=== PATIENT | female | born 1980 | race Caucasian/White ===

== ENCOUNTER 2017-06-30 09:15 | Emergency (ER) | payer SELFPAY ==
[~2017-06-30] VITALS: Ht 162.6 cm; Wt 85.0 kg
[~2017-06-30 09:15] MED LIST: CIPR500T2 PO; Z.0.NO CURRENT MEDS
[2017-06-30 09:27] VITALS: BP 138/66; PULSE 74; RESP 16; TEMP 98.1; O2SAT 99
[2017-06-30] MEDS ORDERED: KETOROLAC TROMETHAMINE 60 MG/2 ML (IM) VIAL IM ONE (09:45)
--- NOTE | 2017-06-30 09:51 | PD ---
HPI Chief Complaint: Complaint Time Seen by Provider: 09:30 Travel History International Travel<30 days: No Contact w/Intl Traveler<30days: No Traveled to known affect area: No History of Present Illness HPI 36-year-old female presents to the emergency department with complaint of burning on urination, difficulty urinating, urinary frequency, bilateral low back pain 1 week. Reports nausea without vomiting. Denies abdominal pain. Denies fever. Denies hematuria. Last menstrual period 2 weeks ago. No contraception use. Denies risk . Does report an abnormal vaginal discharge with fishy odor. Does not want a pelvic exam done. Denies risk of STD/STI. Rates pain 5/10. Describes it as a pressure. Has tried drinking cranberry juice for symptom management. Has not taken any other medications or tried any other treatments to alleviate her symptoms. No known allergies. No primary care provider. Denies significant past medical history. Has no other medical complaints. No other modifying factors or associated signs and symptoms. PFSH Past Medical History : 4 Para: 1 Miscarriage: 1 : 2 Dilation and Curettage (D&C): Yes Past Surgical History Section: Yes Gynecologic Surgery: Yes (d and c ) Social History Alcohol Use: Yes (occasional) Tobacco Use: Yes (one half pack per day) Substance Use: No Allergies-Medications (Allergen,Severity, Reaction): Coded Allergies: No Known Allergies (Verified Adverse Reaction, Unknown, 06/30/17) Reported Meds & Prescriptions Reported Meds & Active Scripts Active Flagyl (Metronidazole) 500 Mg Tab 500 Mg PO BID 7 Days Ciprofloxacin Hcl 500 Mg Tab 500 Mg PO BID Reported No [facility]s [facility] Med[facility] Review of Systems Except as stated in HPI: all other systems reviewed are Neg Physical Exam Narrative GENERAL: Well-nourished, well-developed female patient, in no acute distress SKIN: Warm and dry. No rash. HEAD: Atraumatic. Normocephalic. EYES: Pupils equal and round. No scleral icterus. No injection or drainage. ENT: Mucosa pink and moist. NECK: Trachea midline. CARDIOVASCULAR: Regular rate and rhythm. No murmur appreciated. RESPIRATORY: No accessory muscle use. Clear to auscultation. Breath sounds equal bilaterally. GASTROINTESTINAL: Abdomen soft, non-tender, nondistended. Hepatic and splenic margins not palpable. Bowel sounds are active 4 quadrants. Bladder nontender and nondistended. MUSCULOSKELETAL: No obvious deformities. No clubbing. No cyanosis. No edema. BACK: No CVA tenderness. No reproducible tenderness on palpation to the lower back or bilateral flank areas. NEUROLOGICAL: Awake and alert. Oriented 3. No obvious cranial nerve deficits. Motor grossly within normal limits. Normal speech. Moves all extremities. 5/5 strength to all extremities. PSYCHIATRIC: Appropriate mood and affect; insight and judgment normal. Data Data Last Documented VS Vital Signs Date Time Temp Pulse Resp B/P (MAP) Pulse Ox O2 Delivery O2 Flow Rate FiO2 06/30/17 09:27 98.1 74 16 138/66 (90) 99 Orders Orders Urinalysis - C+S If Indicated (06/30/17 09:31) Ed Urine Pregnancytest Poc (06/30/17 09:31) Ketorolac Inj (Toradol Inj) (06/30/17 09:45) Gc And Chlamydia Pcr (06/30/17 09:38) Wet Prep Profile (06/30/17 09:43) Ed Discharge Order (06/30/17 11:16) Labs Laboratory Tests Test 06/30/17 09:45 Urine Color YELLOW Urine Turbidity CLEAR Urine pH 5.5 Urine Specific [place] 1.021 Urine Protein NEG mg/dL Urine Glucose (UA) NEG mg/dL Urine Ketones NEG mg/dL Urine Occult Blood TRACE Urine Nitrite NEG Urine Bilirubin NEG Urine Urobilinogen LESS THAN 2.0 MG/DL Urine Leukocyte Esterase NEG Urine RBC LESS THAN 1 /hpf Urine WBC 1 /hpf Urine Squamous Epithelial Cells 1 /hpf Microscopic Urinalysis Comment CULT NOT INDICATED Clue Cells (Wet Prep) PRESENT Vaginal Trichomonas (Wet Prep) NONE SEEN Vaginal Yeast (Wet Prep) NONE SEEN MDM Medical Decision Making Medical Screen Exam Complete: Yes Emergency Medical Condition: Yes Medical Record Reviewed: Yes Differential Diagnosis Pyelonephritis, cystitis, urinary tract infection, bacterial vaginosis, chlamydia, gonorrhea Narrative Course 36-year-old female with urinary symptoms and abnormal vaginal discharge and odor. Patient does not want to have a pelvic exam performed. Urinalysis, UPT, voided chlamydia and gonorrhea ordered. 0946: Dr. Montiel evaluated the patient and the patient agrees to self swab. Wet prep ordered. 1114: Urinalysis without signs of infection. Wet prep positive for bacterial vaginosis. Negative for trichomonas or vaginal yeast. Coumadin gonorrhea pending. Flagyl prescribed for home. Instructed patient to follow-up with meteorological observer. Instructed patient to follow up with primary care provider. Patient verbalizes understanding and agreement with treatment plan. Patient is medically cleared and stable for discharge. Discussed reasons to return to the emergency department. Patient agrees with treatment plan. The patients vital signs are stable and the patient is stable for outpatient follow-up and treatment. Patient discharged home, stable and in no acute distress. Diagnosis Primary Impression: BV (bacterial vaginosis) [facility] Patient Instructions: Bacterial Vaginosis (ED), General Instructions Additional Instructions: Take antibiotics as prescribed and complete full course; do not drink alcohol while taking Flagyl Drink plenty of fluids Maintain good personal hygiene Follow-up with primary care provider Return to the emergency department immediately with worsening of symptoms Med/Other Pt SpecificInfo: Prescription(s) given Scripts Metronidazole (Flagyl) 500 Mg Tab 500 MG PO BID for Infection for 7 Days, #14 TAB 0 Refills Prov: Jaja Chin 06/30/17 Disposition: DISCHARGE HOME Condition: Stable Jaja Chin Jun 30, 2017 09:51
[2017-06-30 10:32] LABS: BILIRUBIN, URINE NEG (NEG); BLOOD, URINE TRACE (NEG); GLUCOSE,URINE NEG (NEG); KETONE, URINE NEG (NEG); NITRITE,URINE NEG (NEG); PH, URINE 5.5 (5.0-8.5); SQUAMOUS EPITHELIAL CELL URINE 1 /hpf (0-5); URINE COLOR YELLOW (YELLW/STRAW); URINE LEUKOCYTE ESTERASE NEG (NEG)
[2017-06-30] MEDS ORDERED: METR-1 PO (11:14)
== END 2017-06-30 11:33 | disposition home or self-care (01) ==
LOC: NEPD 09:15
DX: N76.0 Acute vaginitis (principal); F17.210 Nicotine dependence, cigarettes, uncomplicated
CPT/HCPCS: 81001; 84703; 87210; 87491; 87591; 96372; 99284; J1885

== ENCOUNTER 2017-08-25 12:38 | Emergency (ER) | payer SELFPAY ==
[~2017-08-25] VITALS: Ht 162.6 cm; Wt 92.3 kg
[~2017-08-25 12:38] MED LIST changes: +METR-1 PO
[2017-08-25 13:05] VITALS: BP 114/73; PULSE 76; RESP 18; TEMP 97.6; O2SAT 98
[2017-08-25] MEDS ORDERED: KETOROLAC TROMETHAMINE 60 MG/2 ML (IM) VIAL IM ONE (16:00)
--- NOTE | 2017-08-25 16:09 | PD ---
HPI Chief Complaint: Flank/Kidney Pain Time Seen by Provider: 15:43 Travel History International Travel<30 days: No Contact w/Intl Traveler<30days: No Traveled to known affect area: No History of Present Illness HPI 37-year-old female presents to emergency department with complaint of bilateral flank pain, hip pain, dysuria, abnormal vaginal discharge, and subjective fevers on and off since Friday. Says she had similar symptoms about 2 months ago and was treated for "vaginitis." Reports urinary hesitancy. Reports lower abdominal pelvic pressure. Denies abdominal pain. Last menstrual period was a few weeks ago. Denies contraception use. Unknown risk of STI/STD. Rates pain 01/05. Describes it as pressure type feeling. Has tried taking Azo with some relief of symptoms. Symptoms are worse with urinating. No primary care provider. No known allergies. Denies significant past medical history. Has no other medical complaints. No other modifying factors or associated signs and symptoms. PFSH Past Medical History ?: Not LMP: a couple of weeks ago : 4 Para: 1 Miscarriage: 1 : 2 Dilation and Curettage (D&C): Yes Past Surgical History Section: Yes Gynecologic Surgery: Yes (d and c ) Social History Alcohol Use: Yes (occasional) Tobacco Use: Yes (one half pack per day) Substance Use: No Allergies-Medications (Allergen,Severity, Reaction): Coded Allergies: No Known Allergies (Verified Adverse Reaction, Unknown, 06/30/17) Reported Meds & Prescriptions Reported Meds & Active Scripts Active Pyridium (Phenazopyridine HCl) 100 Mg Tab 100 Mg PO Q8H PRN 3 Days Keflex (Cephalexin) 500 Mg Cap 500 Mg PO Q12H 7 Days Flagyl (Metronidazole) 500 Mg Tab 500 Mg PO BID 7 Days Ciprofloxacin Hcl 500 Mg Tab 500 Mg PO BID Reported No Current Meds (Miscellaneous Medication) Misc Review of Systems Except as stated in HPI: all other systems reviewed are Neg Physical Exam Narrative GENERAL: Well-nourished, well-developed female patient, in no acute distress; afebrile, nontoxic-appearing SKIN: Warm and dry. HEAD: Atraumatic. Normocephalic. EYES: Pupils equal and round. No scleral icterus. No injection or drainage. ENT: Mucous membranes pink and moist. NECK: Trachea midline. No lymphadenopathy. CARDIOVASCULAR: Regular rate and rhythm. No murmur appreciated. RESPIRATORY: No accessory muscle use. Clear to auscultation. Breath sounds equal bilaterally. GASTROINTESTINAL: Abdomen soft, non-tender, nondistended. Bilateral pelvic region nontender to palpation. Hepatic and splenic margins not palpable. Bladder tenderness on palpation; nondistended. No guarding, rigidity, rebound tenderness. PELVIC: Exam done in the presence of a nurse. Mucopurulent, foul-smelling discharge noted. Bimanual exam reveals no palpable masses or adnexa tenderness , no uterine tenderness. No cervical motion tenderness. BACK: No CVA tenderness. MUSCULOSKELETAL: No obvious deformities. No clubbing. No cyanosis. No edema. NEUROLOGICAL: Awake and alert. No obvious cranial nerve deficits. Motor grossly within normal limits. Normal speech. PSYCHIATRIC: Appropriate mood and affect; insight and judgment normal. Data Data Last Documented VS Vital Signs Date Time Temp Pulse Resp B/P (MAP) Pulse Ox O2 Delivery O2 Flow Rate FiO2 08/25/17 13:05 97.6 76 18 114/73 (87) 98 Orders Orders Comprehensive Metabolic Panel (08/25/17 13:07) Complete Blood Count With Diff (08/25/17 13:07) Lipase (08/25/17 13:07) Urinalysis - C+S If Indicated (08/25/17 13:07) Ed Urine Pregnancytest Poc (08/25/17 13:07) Gc And Chlamydia Pcr (08/25/17 15:57) Wet Prep Profile (08/25/17 15:57) Ketorolac Inj (Toradol Inj) (08/25/17 16:00) Vascular Access Team Consult/P PRN (08/25/17 16:12) Vascular Poc Ultrasound (08/25/17 ) Urine Culture (08/25/17 15:13) Ceftriaxone Inj (Rocephin Inj) (08/25/17 17:45) Ed Discharge Order (08/25/17 18:56) Labs Laboratory Tests Test 08/25/17 15:13 08/25/17 17:00 08/25/17 17:45 Urine Color YELLOW Urine Turbidity HAZY Urine pH 6.0 Urine Specific [place] 1.017 Urine Protein NEG mg/dL Urine Glucose (UA) NEG mg/dL Urine Ketones NEG mg/dL Urine Occult Blood SMALL Urine Nitrite POS Urine Bilirubin NEG Urine Urobilinogen LESS THAN 2.0 MG/DL Urine Leukocyte Esterase LARGE Urine RBC 9 /hpf Urine WBC 91 /hpf Urine Squamous Epithelial Cells 3 /hpf Urine Amorphous Sediment RARE Urine Bacteria FEW /hpf Urine Mucus FEW /lpf Microscopic Urinalysis Comment CULTURE INDICATED White Blood Count 7.5 TH/MM3 Red Blood Count 4.15 MIL/MM3 Hemoglobin 13.0 GM/DL Hematocrit 37.0 % Mean Corpuscular Volume 89.0 FL Mean Corpuscular Hemoglobin 31.3 PG Mean Corpuscular Hemoglobin Concent 35.2 % Red Cell Distribution Width 12.5 % Platelet Count 203 TH/MM3 Mean Platelet Volume 8.9 FL Neutrophils (%) (Auto) 66.9 % Lymphocytes (%) (Auto) 23.4 % Monocytes (%) (Auto) 8.4 % Eosinophils (%) (Auto) 0.9 % Basophils (%) (Auto) 0.4 % Neutrophils # (Auto) 5.0 TH/MM3 Lymphocytes # (Auto) 1.8 TH/MM3 Monocytes # (Auto) 0.6 TH/MM3 Eosinophils # (Auto) 0.1 TH/MM3 Basophils # (Auto) 0.0 TH/MM3 CBC Comment DIFF FINAL Differential Comment Blood Urea Nitrogen 10 MG/DL Creatinine 0.76 MG/DL Random Glucose 68 MG/DL Total Protein 7.2 GM/DL Albumin 3.1 GM/DL Calcium Level 8.3 MG/DL Alkaline Phosphatase 76 U/L Aspartate Amino Transf (AST/SGOT) 9 U/L Alanine Aminotransferase (ALT/SGPT) 18 U/L Total Bilirubin 0.2 MG/DL Sodium Level 140 MEQ/L Potassium Level 4.0 MEQ/L Chloride Level 105 MEQ/L Carbon Dioxide Level 30.5 MEQ/L Anion Gap 5 MEQ/L Estimat Glomerular Filtration Rate 86 ML/MIN Lipase 109 U/L Clue Cells (Wet Prep) NONE SEEN Vaginal Trichomonas (Wet Prep) NONE SEEN Vaginal Yeast (Wet Prep) NONE SEEN MDM Medical Decision Making Medical Screen Exam Complete: Yes Emergency Medical Condition: Yes Medical Record Reviewed: Yes Differential Diagnosis Bacterial vaginosis, chlamydia, gonorrhea, urinary tract infection, PID Narrative Course 37-year-old female with urinary and vaginal symptoms. Patient was seen here June 30 for similar symptoms and diagnosed and treated for bacterial vaginosis. She says her current symptoms are similar to her past visit. 1744: Urinalysis with signs of infection. Rocephin 1 g IV ordered. 1855: Bacterial vaginosis, trichomonas, vaginal yeast negative. chlamydia and gonorrhea pending. Pyridium, Keflex prescribed for home. Instructed patient to follow up with primary care provider. Patient verbalizes understanding and agreement with treatment plan. Patient is medically cleared and stable for discharge. Discussed reasons to return to the emergency department. Patient agrees with treatment plan. The patients vital signs are stable and the patient is stable for outpatient follow-up and treatment. Patient discharged home, stable and in no acute distress. Diagnosis Primary Impression: UTI (urinary tract infection) Qualified Codes: N39.0 - Urinary tract infection, site not specified; R31.9 - Hematuria, unspecified Referrals: [facility] [employer] [facility] Primary Care Physician Patient Instructions: General Instructions, Urinary Tract Infection in Women ( ED) Additional Instructions: Take antibiotics as prescribed and complete full course Take Pyridium for bladder spasms: Pyridium will turn your urine bright orange Drink plenty of fluids Maintain good personal hygiene Follow-up with primary care provider Return to the emergency department immediately with worsening of symptoms Med/Other Pt SpecificInfo: Prescription(s) given Scripts Ibuprofen (Ibuprofen) 800 Mg Tab 800 MG PO Q6HR Y for PAIN, #30 TAB 0 Refills Prov: Jaja Chin 08/25/17 Phenazopyridine (Pyridium) 100 Mg Tab 100 MG PO Q8H Y for DYSURIA for 3 Days, #9 TAB 0 Refills Prov: Jaja Chin 08/25/17 Cephalexin (Keflex) 500 Mg Cap 500 MG PO Q12H for Infection for 7 Days, #14 CAP 0 Refills Prov: Jaja Chin 08/25/17 Disposition: DISCHARGE HOME Condition: Stable Jaja Chin Aug 25, 2017 16:09
[2017-08-25 16:30] LABS: AMORPHOUS SEDIMENT, URINE RARE; BACTERIA, URINE FEW /hpf; BILIRUBIN, URINE NEG (NEG); BLOOD, URINE SMALL (NEG); GLUCOSE,URINE NEG (NEG); KETONE, URINE NEG (NEG); MUCUS URINE FEW /lpf (OCC); NITRITE,URINE POS (NEG); SQUAMOUS EPITHELIAL CELL URINE 3 /hpf (0-5); URINE COLOR YELLOW (YELLW/STRAW); URINE LEUKOCYTE ESTERASE LARGE (NEG)
[2017-08-25 17:42] LABS: BASOPHIL % 0.4 % (0.0-2.0); EOSINOPHIL # 0.1 TH/MM3 (0-0.4); EOSINOPHIL % 0.9 % (0.0-4.0); LYMPH % 23.4 % (9.0-44.0); LYMPHOCYTE # 1.8 TH/MM3 (1.0-4.8); MEAN CORPUSCULAR HEMOGLOBIN 31.3 PG (27.0-34.0); MEAN CORPUSCULAR HGB CONC 35.2 % (32.0-36.0); MEAN PLATELET VOLUME 8.9 FL (7.0-11.0); MONO % 8.4 % (0.0-8.0); MONOCYTE # 0.6 TH/MM3 (0-0.9); NEUT % 66.9 % (16.0-70.0); PLATELET COUNT 203 TH/MM3 (150-450); RED BLOOD COUNT 4.15 MIL/MM3 (4.00-5.30); RED CELL DISTRIBUTION WIDTH 12.5 % (11.6-17.2); WHITE BLOOD COUNT 7.5 TH/MM3 (4.0-11.0)
[2017-08-25] MEDS ORDERED: cefTRIAXone INJ 1,000 MG in SODIUM CHLORIDE 0.9% INJ 100 ML IV ONE (17:45)
[2017-08-25] MEDS ORDERED: CEPH-460 PO (17:55)
[2017-08-25] MEDS ORDERED: PHEN0.4T PO (17:55)
[2017-08-25 18:05] LABS: ALBUMIN 3.1 GM/DL (3.4-5.0); ALT (GPT) 18 U/L (10-53); AST (GOT) 9 U/L (15-37); BICARBONATE 30.5 MEQ/L (21.0-32.0); BLOOD UREA NITROGEN 10 MG/DL (7-18); CALCIUM 8.3 MG/DL (8.5-10.1); CHLORIDE 105 MEQ/L (98-107); CREATININE 0.76 MG/DL (0.50-1.00); GLOMERULAR FILTRATION RATE 86 ML/MIN (>89); GLUCOSE,RANDOM 68 MG/DL (74-106); SODIUM (NA) 140 MEQ/L (136-145)
[2017-08-25 18:06] LABS: ALKALINE PHOSPHATASE 76 U/L (45-117); TOTAL BILIRUBIN ADULT 0.2 MG/DL (0.2-1.0); TOTAL PROTEIN 7.2 GM/DL (6.4-8.2)
[2017-08-25] MEDS ORDERED: IBUP1TAB7 PO (18:57)
== END 2017-08-25 19:20 | disposition home or self-care (01) ==
LOC: NEPD 12:38
DX: N39.0 Urinary tract infection, site not specified (principal); R31.9 Hematuria, unspecified
CPT/HCPCS: 80053; 81001; 83690; 84703; 85025; 87077; 87086; 87186; 87210; 87491; 87591; 96372; 96374; 99284; J0696; J1885